=== PATIENT | male | born 1995 | race Caucasian/White ===

== ENCOUNTER 2016-12-21 13:05 | Emergency (ER) | payer OTHER ==
[2016-12-21 13:12] VITALS: BP 138/79; PULSE 76; TEMP 97.4; BMI 20.5
--- NOTE | 2016-12-21 14:42 | PDOC ---
History of Present Illness - General Chief Complaint: Injury Stated Complaint: INJURY Time Seen by Provider: 12/21/16 14:08 History Source: Patient Exam Limitations: No Limitations - History of Present Illness Initial Comments: 12/21/16 14:39 21 y/o male presents to the ED with laceration to his left fifth digit. Patient states was cutting an object with a miter cutter when it went through causing him to sustain a laceration. Patient denies any range of motion decreased, sensory changes distally, previous injury to affected area, and states is up-to -date on last tetanus being approximately 2 years ago. Timing/Duration: 1 hour Severity: mild Associated Symptoms: reports: denies symptoms Past History - Past Medical History Allergies/Adverse Reactions: Allergies Allergy/AdvReac Type Severity Reaction Status Date / Time No Known Allergies Allergy Verified 12/21/16 13:12 Home Medications: Ambulatory Orders NK [No Known Home Medication] 08/02/16 Other medical history: denies - Immunization History Immunization Up to Date: Yes - Psycho/Social/Smoking Cessation Hx Anxiety: No Suicidal Ideation: No Smoking Status: No Smoking History: Never smoked Number of Cigarettes Smoked Daily: 0 Hx Alcohol Use: No Drug/Substance Use Hx: No Substance Use Type: None Patient Lives Alone: No Lives with/in: parents Review of Systems - Review of Systems Able to Perform ROS?: Yes Constitutional: No: Symptoms Reported Integumentary: Yes: See HPI Neurological: No: Numbness, Tingling Hematologic/Lymphatic: No: Symptoms Reported *Physical Exam - Vital Signs Last Vital Signs Temp Pulse Resp BP Pulse Ox 97.4 F L 76 18 138/79 99 12/21/16 13:06 12/21/16 13:06 12/21/16 13:06 12/21/16 13:06 12/21/16 13:06 - Physical Exam General Appearance: Yes: Nourished, Appropriately Dressed. No: Apparent Distress Integumentary: positive: Other (patient with 2 cm linear laceration to lateral aspect of left fifth digit) Neurologic: positive: Motor Strength 5/5 (full range of motion of left fifth digit. ) Procedures - Laceration/Wound Repair Left 5th digit Finger Wound Length: to 2.5 cm Wound Explored: clean Wound's Depth, Shape: superficial, linear Irrigated w/ Saline: Yes Betadine Prep: Yes Anesthesia: 1% Lidocaine Amount of Anesthetic (ccs): 1 Wound Repaired With: Sutures Suture Size/Type: 5:0 Number of Sutures: 6 Medical Decision Making - Medical Decision Making 12/21/16 14:44 Patient with laceration to left fifth digit. Laceration repair done without difficulty. Patient on exam had no sensory changes with normal 2 point discrimination. *DC/Admit/Observation/Transfer Diagnosis at time of Disposition: Laceration of finger of left hand Qualifiers: Encounter type: initial encounter Qualified Code(s): S61.219A - Laceration without foreign body of unspecified finger without damage to nail, initial encounter - Discharge Dispostion Disposition: HOME Condition at time of disposition: Improved - Referrals Referrals: Rajinder Jones MD [Primary Care Provider] - - Patient Instructions Printed Discharge Instructions: DI for Laceration Repair -- Simple Additional Instructions: Please return to the ED in 10-14 days for removal. Keep area clean and dry
== END 2016-12-21 14:53 | disposition home or self-care (01) ==
LOC: JERFT 13:05
PROC: 0HQGXZZ Repair Left Hand Skin, External Approach (ICD-10-PCS; principal; 2016-12-21)
DX: S61.217A Laceration without foreign body of left little finger without damage to nail, initial encounter (principal); W27.8XXA Contact with other nonpowered hand tool, initial encounter; Y93.89 Activity, other specified; Y92.89 Other specified places as the place of occurrence of the external cause
CPT/HCPCS: 12001-25; 99282-25

== ENCOUNTER 2017-01-01 15:40 | Emergency (ER) | payer OTHER ==
[2017-01-01 15:59] VITALS: BP 114/71; PULSE 80; TEMP 98.5; BMI 21.1
--- NOTE | 2017-01-01 16:19 | PDOC ---
Suture Removal/Wound Check HPI - History of Present Illness Chief Complaint: Revisit,Wound Recheck Stated Complaint: WOUND CHECK, SUTURES IN PLACE LF 5TH FINGER Time Seen by Provider: 01/01/17 15:55 - Onset of Previous Treatment Comment:: 01/01/17 16:15 21-year-old male on 12/21/16, sustained a laceration to his left fifth digit at the level of the PIP joint laterally It was closed with 6 stitches, and he is here today for a wound check He states that the center 3 of the 6 stitches came out on their own Past History - Past Medical History Allergies/Adverse Reactions: Allergies No Known Allergies Allergy (Verified 01/01/17 15:49) Home Medications: Ambulatory Orders NK [No Known Home Medication] 08/02/16 - Immunization History Immunizations Up to Date: Yes Tetanus Status: Less than 5 years - Social History Smoking History: No Smoking Status: Never smoked Number of Ciarettes Per Day: 0 Suture Removal/Wound Check PE - Physical Exam Comments: 01/01/17 16:17 Physical exam The patient is alert and ambulatory and answering questions Head is normocephalic and atraumatic Left fifth finger There is a laceration laterally at the level of the PIP joint There appears to have been [address], but the center 3 have come out, and the wound is coming apart a bit in the middle where the sutures have come out There is no evidence of infection Patient is able to flex and extend all fingers and sensation is intact Medical Decision Making - Medical Decision Making 01/01/17 16:18 The area was cleansed thoroughly with Betadine, and the center part was closed with Steri-Strips The 3 stitches on either end of the wound were left in place Patient was instructed to keep the area clean and dry, and to return in 5 days for a wound check and suture removal *DC/Admit/Observation/Transfer Diagnosis at time of Disposition: Encounter for wound re-check - Discharge Dispostion Disposition: HOME Condition at time of disposition: Stable - Referrals Referrals: Rajinder Jones MD [Primary Care Provider] - - Patient Instructions Additional Instructions: Keep the Steri-Strips clean and dry and in place Please wear gloves if you need to get your hand wet so the Steri-Strips stay clean and dry Please return in 5 days for wound recheck, and Steri-Strip and suture removal Return immediately if you notice any drainage, increasing pain, redness, swelling, or any other concerns you may have
== END 2017-01-01 16:35 | disposition home or self-care (01) ==
LOC: FER 15:40
DX: Z48.01 Encounter for change or removal of surgical wound dressing (principal)
CPT/HCPCS: 99282-25

== ENCOUNTER 2017-03-02 13:22 | Emergency (ER) | payer OTHER ==
[2017-03-02 13:31] VITALS: BP 123/72; PULSE 102; TEMP 99.1; BMI 21.2
[2017-03-02] MEDS ORDERED: KETOROLAC TROMETHAMINE 30 MG/1 ML VIAL IVPUSH ONE (13:34)
[2017-03-02] MEDS ORDERED: KETOROLAC TROMETHAMINE 30 MG/1 ML VIAL ONE (13:38)
[2017-03-02] MEDS ORDERED: SODIUM CHLORIDE 1,000 ML IV ONE (13:41)
--- NOTE | 2017-03-02 13:41 | PDOC ---
History of Present Illness - General Chief Complaint: Pain Stated Complaint: LEFT BACK PAIN RADIATING TO FRONT AND GROIN Time Seen by Provider: 03/02/17 13:26 History Source: Patient Exam Limitations: No Limitations - History of Present Illness Travel History: No Initial Comments: 03/02/17 13:38 21y F presents with R flank pain and radiates to the RLQ. pt staets he started having the pain last night,a nd it does get worse intermittently making it more difficult for him to sleep. no associated f/c, n/v, hematuria, dysuria, diarrhea. 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 no prior hx of kidney stones, but family members have it has not taken any pain meds. pt does endorse it seems positional, and worsens when he stands. but it also worsened whenhe ws alying down in bed last night. Past History - Past Medical History Allergies/Adverse Reactions: Allergies Allergy/AdvReac Type Severity Reaction Status Date / Time No Known Allergies Allergy Verified 03/02/17 13:26 Home Medications: Ambulatory Orders NK [No Known Home Medication] 08/02/16 Other medical history: MIGRAINE HEADACHES - Immunization History Immunization Up to Date: Yes - Psycho/Social/Smoking Cessation Hx Anxiety: No Suicidal Ideation: No Smoking Status: No Smoking History: Never smoked Number of Cigarettes Smoked Daily: 0 Information on smoking cessation initiated: No Hx Alcohol Use: No Drug/Substance Use Hx: No Substance Use Type: None Review of Systems - Review of Systems Able to Perform ROS?: Yes Comments:: 03/02/17 13:39 Constitutional - no reported Fever, Chills, HEENT: no reported vision changes, sore throat Respiratory: no reported cough, sob, hemoptysis Cardiac: no reported chest pain, palpitations, light headedness, leg swelling Abd/GI: +R flank pain no reported abd pain, nausea, vomiting, blood per rectum, melena, diarrhea : no reported dysuria, frequency, discharge Musculskelatal - no reported back pain, joint swelling skin - no reported bruising, erythema, rash neurological: no reported headache, numbness, focal weakness, tingling, ataxia, hematologic: no reported anemia, easy bruising, easy bleeding *Physical Exam - Vital Signs Last Vital Signs Temp Pulse Resp BP Pulse Ox 99.1 F 102 H 20 123/72 99 03/02/17 13:22 03/02/17 13:22 03/02/17 13:22 03/02/17 13:22 03/02/17 13:22 - Physical Exam Comments: 03/02/17 13:40 GENERAL: The patient is awake, alert, and fully oriented, Nontoxic - in no acute distress. HEAD: Normocephalic, atraumatic. EYES: extraocular movements intact, sclera anicteric, conjunctiva clear. ENT: Normal voice, Moist mucous membranes. NECK: Normal range of motion, supple LUNGS: Breath sounds equal, clear to auscultation bilaterally. No wheezes, no rhonchi, no rales. HEART: Regular rate and rhythm, normal S1 and S2 without murmur, rub or gallop. ABDOMEN: Soft, nontender, normoactive bowel sounds. No guarding, no rebound. + mild R CVA tenderness EXTREMITIES: Normal range of motion, no edema. No clubbing or cyanosis. No cords, erythema, or tenderness. NEUROLOGICAL: No facial assymetry, Normal speech, PSYCH: Normal mood, normal affect. SKIN: Warm, Dry, normal turgor, ED Treatment Course - LABORATORY CBC & Chemistry Diagram: 03/02/17 13:40 03/02/17 13:34 Medical Decision Making - Medical Decision Making 03/02/17 13:40 21y M presenting with R flank pain that radiates to RLQ on exam mild R cva tenderness and mild rlq tenderness vitals noted for mild tachycaria o 102 suspect kdiney stone vs/ msk pain lower suspicion for appendicitis will ck labs, ua will give toradol will give fluids will reasess 03/02/17 15:45 labs reviewed trace bloodon UA ct neg for stones suspect possible msk cause will recommend supportive care at home return precautions wer discussed I discussed the physical exam findings, ancillary test results and final diagnoses with the patient. I answered all of the patient's questions. The patient was satisfied with the care received and felt comfortable with the discharge plan and treatment plan. The patient will call their primary care physician within 24 hours to arrange follow-up and will return to the Emergency Department with any new, persistent or worsening symptoms. *DC/Admit/Observation/Transfer Diagnosis at time of Disposition: Muscle strain - Discharge Dispostion Disposition: HOME Condition at time of disposition: Improved Admit: No - Referrals Referrals: Misael Glaser MD [Staff Physician] - - Patient Instructions Printed Discharge Instructions: DI for Abdominal Muscle Strain Additional Instructions: Return to the emergency department immediately with ANY new, persistent or worsening symptoms. Take ibuprofen or Tylenol as needed for pain. Try to avoid any heavy lifting or straining. You MUST call and follow up with your doctor tomorrow for further evaluation of your symptoms. Results were discussed with you. Please make sure your doctor reviews the results of your emergency evaluation. If you had any xrays during your visit, it was read preliminarily by myself, a Radiologist will review it and if there are any additional findings we will call you.
[2017-03-02 14:10] LABS: BASOPHIL 1.2 % (0-2.0); EOSINOPHIL 1.2 % (0-4.5); MCH 27.6 pg (25.7-33.7); MCHC 33.1 g/dl (32.0-35.9); MEAN CELL VOLUME 83.4 fl (80-96); MEAN PLT VOLUME 8.6 fl (7.5-11.1); NEUTROPHILS 69.2 % (42.8-82.8); PLATELET COUNT 276 K/MM3 (134-434); RDW 12.6 % (11.9-15.9); WHITE BLOOD COUNT 11.8 K/mm3 (4.0-10.8)
[2017-03-02 14:10] LABS: PH,URINE 5.5 (4.5-8); URINE APPEARANCE Clear; URINE BILIRUBIN 1+ (NEGATIVE); URINE BLOOD Trace-intact (NEGATIVE); URINE GLUCOSE (UA) Negative (NEGATIVE); URINE KETONE 2+ (NEGATIVE); URINE LEUK ESTERASE Negative (NEGATIVE); URINE NITRITE Negative (NEGATIVE); URINE UROBILINOGEN 0.2 E.U/dl (0.2-1.0)
[2017-03-02 14:17] LABS: ALBUMIN 4.4 g/dl (3.5-5.0); ALK PHOS 66 U/L (32-92); ANION GAP 8 (8-16); BILIRUBIN,TOTAL 0.9 mg/dl (0.2-1.0); CALCIUM 9.5 mg/dl (8.4-10.2); CO2 28 mmol/L (22-28); CREATININE 0.9 mg/dl (0.6-1.3); GLUCOSE,RANDOM 88 mg/dl (74-106); SGOT/AST 23 U/L (10-42); SGPT/ALT 25 U/L (10-40); TOT PROT 7.6 g/dl (6.4-8.3)
[2017-03-02 14:19] LABS: URINE COLOR YELLOW; URINE PROTEIN 1+ (NEGATIVE)
[2017-03-02 14:48] LABS: URINE RBC 0-3 /hpf (0-3); URINE WBC 0-1 (3-5)
== END 2017-03-02 15:55 | disposition home or self-care (01) ==
LOC: FER 13:22
PROC: 3E0333Z Introduction of Anti-inflammatory into Peripheral Vein, Percutaneous Approach (ICD-10-PCS; principal; 2017-03-02)
PROC: 3E0337Z Introduction of Electrolytic and Water Balance Substance into Peripheral Vein, Percutaneous Approach (ICD-10-PCS; 2017-03-02)
DX: S39.011A Strain of muscle, fascia and tendon of abdomen, initial encounter (principal); X58.XXXA Exposure to other specified factors, initial encounter; Y93.9 Activity, unspecified; Y92.9 Unspecified place or not applicable; Y99.9 Unspecified external cause status
CPT/HCPCS: 36415; 74176; 80053; 81003; 81015; 85025; 96361; 96374; 99284-25

== ENCOUNTER 2017-11-18 11:03 | Emergency (ER) | payer OTHER ==
[2017-11-18 11:08] VITALS: BP 119/77; PULSE 91; TEMP 97.6; BMI 22.0
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
== END 2017-11-18 14:37 | disposition home or self-care (01) ==
LOC: JERFT 11:03
PROC: 0RSUXZZ Reposition Right Metacarpophalangeal Joint, External Approach (ICD-10-PCS; principal; 2017-11-18)
DX: S62.346A Nondisplaced fracture of base of fifth metacarpal bone, right hand, initial encounter for closed fracture (principal); W22.01XA Walked into wall, initial encounter; Y93.89 Activity, other specified; Y92.9 Unspecified place or not applicable
CPT/HCPCS: 73110-TC-RT; 73130-TC-RT; 99282-25

== ENCOUNTER 2019-02-06 19:21 | Emergency (ER) | payer SELFPAY ==
[2019-02-06 19:34] VITALS: BP 118/57; PULSE 76; TEMP 98.4; BMI 22.0
--- NOTE | 2019-02-06 19:38 | CONSULT ---
Consult - text type - Consultation Consultation Note: CC: right testicular pain hpi: patient is a 23 year old male with history of right testicular pain since 1:00 pm today. Patient has had 2 previous episodes of acute right testicular pain that resolved. Patient denies trauma or urinary symptoms. Sonogram showed diminished blood blow as compared to the left testis. PE afeb, vss abd-soft nontender genitalia- nl phallus; both testes in symmetrical position; no edema or swelling of both testes; right epididymal tenderness; small right epididymal cyst; minimal right hydrocele; scrotal skin wn.; cremasteric reflex absent bilaterally imp intermittent right testicular torsion right epididymal cyst right hydrocele plan repeat scrotal sonogram if no acute torsion consider bilateral orchidopexy 60 minutes devoted to patient care discussed with radiologists and patient and ER staff at both [facility]
--- NOTE | 2019-02-06 19:44 | PDOC ---
History of Present Illness - General Chief Complaint: Pain Stated Complaint: TESICULAR TORSION Time Seen by Provider: 02/06/19 19:26 - History of Present Illness Initial Comments: 02/06/19 20:02 The patient was a 24 year old male with no significant reported PMH who was BIBEMS from [facility] for possible testicular torsion. Patient states pain started around 12 p.m. today immediately post coital. Pain is sharp, constant and sometimes radiates to his RLQ. States it feels as if someone is pulling a hair out of his scrotum. H/o similar pain 2-3 months previous was well as 1 year previous, on both occasions the pain was self-resolving after 2-3 minutes. The first episode of pain occured when he was walking to the bathroom to urinate, the second episode of pain occured while he was at work. 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 No noted dysuria/ hematuria since onset of pain with multiple urinations. Denies any recent fevers/chills, trauma, vomiting, diarrhea/constipation. NKDA As per EMR, labs @ [facility] earlier today showed no leukocytosis, clean urine. Past History - Past Medical History Allergies/Adverse Reactions: Allergies Allergy/AdvReac Type Severity Reaction Status Date / Time No Known Allergies Allergy Verified 02/06/19 19:30 Home Medications: Ambulatory Orders levoFLOXacin [Levaquin -] 500 mg PO DAILY #7 tablet 02/06/19 CVA: No COPD: No DVT: No Other medical history: Migraines - Immunization History Immunization Up to Date: Yes - Suicide/Smoking/Psychosocial Hx Smoking Status: No Smoking History: Never smoked Have you smoked in the past 12 months: No Number of Cigarettes Smoked Daily: 0 Information on smoking cessation initiated: No Hx Alcohol Use: No Drug/Substance Use Hx: No Substance Use Type: None Review of Systems - Review of Systems Constitutional: No: Chills, Fever HEENTM: No: Recent change in vision Respiratory: No: Cough, Shortness of Breath, Wheezing Cardiac (ROS): No: Chest Pain, Lightheadedness, Palpitations, Syncope ABD/GI: No: Constipated, Diarrhea, Nausea, Vomiting : Yes: Testicular Pain. No: Dysuria, Discharge, Hematuria *Physical Exam - Vital Signs Last Vital Signs Temp Pulse Resp BP Pulse Ox 98.4 F 76 18 118/57 L 98 02/06/19 19:31 02/06/19 19:31 02/06/19 19:31 02/06/19 19:31 02/06/19 19:31 - Physical Exam Comments: 02/06/19 20:08 Non-toxic appearing male VS unremarkable : (as per Dr. Lange): B/L absence of cremasteric reflex, palpable cords CV: S1,S2, no M/R/G Abdomen: soft, non-tender, (+) bowel sounds Respiratory: Lungs CLTA B/L, no wheeze/crackle ED Treatment Course - RADIOLOGY Radiology Studies Ordered: Category Date Time Status SCROTUM AND CONTENTS US [US] Stat Ultrasound 02/06/19 19:28 Ordered Medical Decision Making - Medical Decision Making 02/06/19 19:42 23 year old male, acute onset of post coital testicular pain. Scrotal U/S @ [facility] concerning for possible scrotal U/S Dr. Lange @ bedside - notes palpable cord, B/L absence of cremasteric reflex less likely suggestive of acute testicular torsion. Requests repeat scrotal U/S, possible elective orchiotemy in a.m. 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 B/L hydroceles; (2) B/L varicoceles; (3) R epidymal cyst - non aggressive/benign Will page Dr. Lange 02/06/19 20:45 Case d/w Dr. Lange, states patient can schedule elective orchiectomy; requests abx for epidiymitis. *DC/Admit/Observation/Transfer Diagnosis at time of Disposition: Testicular pain - Discharge Dispostion Disposition: HOME Condition at time of disposition: Good Decision to Admit order: No - Prescriptions Prescriptions: levoFLOXacin [Levaquin -] 500 mg PO DAILY #7 tablet - Referrals Referrals: Phi Lange MD [Staff Physician] - - Patient Instructions Additional Instructions: Please make a follow-up appointment in the next [address] Lange ( referral information provided) or you can call your insurance company for a list of urologists. You will likely require elective outpatient surgery. Your care is not complete until you are evaluated by a urologist. We are prescribing an antibiotic. Please complete the entire prescribed course. Return to the Emergency Department for any new/worsening/concerning symptoms include repeat pain. - Post Discharge Activity
--- NOTE | 2019-02-07 02:12 | PDOC ---
Documentation entered by Zaki Quintana SCRIBE, acting as scribe for Cesia Cardoso MD. Cesia Cardoso MD: This documentation has been prepared by the Lilian romano Nirvannie, SCRIBE, under my direction and personally reviewed by me in its entirety. I confirm that the documentation accurately reflects all work, treatment, procedures, and medical decision making performed by me. Attending Attestation - Resident Resident Name: Skye Soria - ED Attending Attestation I have performed the following: I have examined & evaluated the patient, The case was reviewed & discussed with the resident, I agree w/resident's findings & plan - HPI HPI: 02/06/19 19:59 this 23 yo male has intermittent rt testicular pain . Dr Jr Martinez is bedside and examined the pt. The pt was iniitally seen at [facility] and Dr Jr Martinez accepted pt here . Dr Jr Martinez requested repeat testicular US - Physicial Exam PE: 02/06/19 21:05 wnwd 23 yo male who is now comfortable after his exam with the urologist .He had rt testicular pain head ncat neck supple cvs [id number] lungs cta b/l abd flat,nontender,+bs exam already done by the urologist, Dr Jr Martinez. Currently there is no erythema or pain ext no edema neuro axox3,ambulatory skin warm and dry,no rashes no cva tenderness currently psych appropriate 02/06/19 21:06 - Medical Decision Making 02/06/19 20:35 EXAM: Bilateral scrotal sonogram. Clinical indication: Rule out testicular torsion. No further information is provided. There are no prior studies available for comparison. Findings: The right testicle measures 3.5 x 3.0 x 2.3 cm in diameter and has an unremarkable sonographic appearance without focal abnormality. Color Doppler duplex interrogation of the right testicle demonstrates normal internal flow. There is a tiny right-sided hydrocele. The right epididymis measures 1.0 x 0.9 x 0.5 cm in diameter and contains a small simple epididymal cyst. Also within the head there is a heterogeneous hypoechoic nodular area. This area measures roughly 0.9 x 0.4 cm in diameter and is ovoid and hypoechoic. Almost all epididymal lesions are nonaggressive. Using Valsalva technique there is evidence of right-sided varicocele. The left testicle measures 4.4 x 3.4 x 2.4 cm in diameter and hasn't unremarkable sonographic appearance without focal abnormality. Color Doppler duplex interrogation of the left testicle demonstrates normal internal flow. There is a tiny left-sided hydrocele. The left-sided epididymis measures 0.7 x 0.7 x 0.4 cm in diameter and has not unremarkable sonographic appearance. Using Valsalva technique there is evidence of left-sided varicocele. Nfam-rj-[id number] sonographic interrogation of the bilateral testicles demonstrates relatively symmetric blood flow. Impression: 1. Tiny bilateral hydroceles. 2. Bilateral varicoceles. 3. Tiny right epididymal cyst with a small right-sided epididymal soft tissue nodular area which is indeterminate from a sonographic standpoint. However, almost all epididymal lesions are nonaggressive/benign. Consider follow-up sonogram in 3-6 months time to confirm stability. Read by: Ezio Frost MD 02/06/19 21:09 imp intermittent testicular pain/Rt epididymal cyst, b/l varicoceles plan will follow up with urologist
== END 2019-02-06 21:57 | disposition home or self-care (01) ==
LOC: JER 19:21
DX: N43.2 Other hydrocele (principal); I86.1 Scrotal varices; N50.3 Cyst of epididymis
CPT/HCPCS: 76870-TC; 99281-25

== ENCOUNTER → 2019-02-06 | Emergency (ER) | payer SELFPAY ==
[~2019-02-06] MED LIST: morphine CARPU-JECT 4 MG/1 ML DISP.SYRIN IVPUSH ONE; morphine SULFATE 4 MG/ML VIAL ONE
--- NOTE | 2019-02-06 13:44 | PDOC ---
History of Present Illness - General Chief Complaint: Pain Stated Complaint: RIGHT TESTICULAR PAIN Time Seen by Provider: 02/06/19 13:37 History Source: Patient Exam Limitations: No Limitations - History of Present Illness Travel History: No Initial Comments: 02/06/19 13:43 23y M no significant pmhx presents with R tresticular pain. Pt states pain started around 12pm - had just had intercourse with his girlfriend and was laying in bed when he developed sudden onset of pain in the R testicle that rdiates up to the RLQ. Pt has urinated 3 x since but denies any urinary symptmos. Pt denies any dysuria, penile dc, hematuria, n/v, diaphoresis, fever/ chills, diarrhea, melena, bpr, abd pain. 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 social history: +Vaping Past History - Past Medical History Allergies/Adverse Reactions: Allergies Allergy/AdvReac Type Severity Reaction Status Date / Time No Known Allergies Allergy Verified 02/06/19 13:35 Home Medications: Ambulatory Orders NK [No Known Home Medication] 08/02/16 CVA: No COPD: No DVT: No - Immunization History Immunization Up to Date: Yes - Suicide/Smoking/Psychosocial Hx Smoking Status: No Smoking History: Never smoked Have you smoked in the past 12 months: No Number of Cigarettes Smoked Daily: 0 Hx Alcohol Use: No Drug/Substance Use Hx: No Substance Use Type: None Review of Systems - Review of Systems Able to Perform ROS?: Yes Comments:: 02/06/19 13:48 Constitutional - no reported Fever, Chills, HEENT: no reported vision changes, sore throat Respiratory: no reported cough, sob, hemoptysis Cardiac: no reported chest pain, palpitations, light headedness, leg swelling Abd/GI: no reported abd pain, nausea, vomiting, blood per rectum, melena, diarrhea : +testicular pain no reported dysuria, frequency, discharge Musculskelatal - no reported back pain, joint swelling skin - no reported bruising, erythema, rash neurological: no reported headache, numbness, focal weakness, tingling, ataxia, hematologic: no reported easy bruising, easy bleeding *Physical Exam - Physical Exam Comments: 02/06/19 13:48 GENERAL: The patient is awake, alert, and fully oriented, Nontoxic - in no acute distress. HEAD: Normocephalic, atraumatic. EYES: extraocular movements intact, sclera anicteric, conjunctiva clear. ENT: Normal voice, Moist mucous membranes. NECK: Normal range of motion, supple LUNGS: Breath sounds equal, clear to auscultation bilaterally. No wheezes, no rhonchi, no rales. HEART: Regular rate and rhythm, normal S1 and S2 without murmur, rub or gallop. ABDOMEN: Soft, nontender, No guarding, no rebound. No CVA tenderness : enlarged, diffusely tender R testical, no significant edema/induration/ erythema noted, absent cremestaric reflex EXTREMITIES: Normal range of motion, no edema. No clubbing or cyanosis. No cords, erythema, or tenderness. NEUROLOGICAL: No facial assymetry, Normal speech, moving all 4 extreities spontaneously and symmetrically PSYCH: Normal mood, normal affect. SKIN: Warm, Dry, normal turgor, ED Treatment Course - LABORATORY CBC & Chemistry Diagram: 02/06/19 13:56 02/06/19 13:56 Medical Decision Making - Medical Decision Making 02/06/19 13:50 concern for possible torsion, also consider uteritis, epidydmidis, kidney stone will obtain preop labs will obtain UA, GC US to eval for torsion 02/06/19 17:03 The patient's ultrasound reveals demnished blood flow to the right testicle. Case was discussed with Dr. Jr Maritnez - requests us transfer pt to [facility] so he can be evaluated for possibibly operative management. He is ocming now to [facility]. Case was also discussed with Dr. Cardoso- accepted to the ED for further evalution by Dr. Garduno 02/06/19 18:59 Empress here to roller picker the patient pt feels improved currently pain significantly relieved *DC/Admit/Observation/Transfer Diagnosis at time of Disposition: Testicular pain, right - Discharge Dispostion Condition at time of disposition: Stable - Referrals - Patient Instructions - Post Discharge Activity
[2019-02-06 13:56] VITALS: BMI 22.0
[2019-02-06 14:12] LABS: BASO % 0.3 % (0-2.0); EOS % 1.7 % (0-4.5); HEMOGLOBIN 15.1 GM/dl (11.7-16.9); LYMPH % 26.2 % (8-40); MCHC 33.5 g/dl (32.0-35.9); MEAN CELL VOLUME 83.5 fl (80-96); MEAN PLT VOLUME 8.6 fl (7.5-11.1); MONO % 9.5 % (3.8-10.2); NEUT % 62.3 % (42.8-82.8); PLATELET COUNT 284 K/MM3 (134-434); RBC 5.39 M/mm3 (4.00-5.60); RDW 12.6 % (11.9-15.9)
[2019-02-06 14:15] LABS: INR 1.35 (0.82-1.09)
[2019-02-06 14:21] LABS: ALBUMIN 4.2 g/dl (3.4-5.0); ALK PHOS 68 U/L (45-117); ANION GAP 10 MMOL/L (8-16); BILIRUBIN,TOTAL 0.6 mg/dl (0.2-1); BLOOD UREA NITROGEN 13 mg/dl (7-18); CALCIUM 9.6 mg/dl (8.5-10); CHLORIDE 102 mmol/L (98-107); CO2 26 mmol/L (21-32); CREATININE 0.8 mg/dl (0.55-1.3); GLUCOSE,RANDOM 102 mg/dl (74-106); POTASSIUM 4.3 mmol/L (3.5-5.1); SGOT/AST 21 U/L (15-37); SGPT/ALT 16 U/L (13-61); SODIUM 138 mmol/L (136-145); TOT PROT 7.3 g/dl (6.4-8.2)
[2019-02-06 16:12] VITALS: BP 115/70; PULSE 75; TEMP 98.1
== END | disposition home or self-care (01) ==
LOC: FER 13:33
PROC: 3E033NZ Introduction of Analgesics, Hypnotics, Sedatives into Peripheral Vein, Percutaneous Approach (ICD-10-PCS; principal; 2019-02-06)
DX: N50.811 Right testicular pain (principal)
CPT/HCPCS: 36415; 76870-TC; 80053; 81003; 85025; 85610; 86850; 86900; 86901; 87086; 87491; 87591; 99283-25

== ENCOUNTER 2019-05-19 20:30 | Emergency (ER) | payer OTHER ==
[2019-05-19 20:36] VITALS: BP 107/73; PULSE 84; TEMP 99; BMI 24.3
--- NOTE | 2019-05-19 20:40 | PDOC ---
History of Present Illness - General Chief Complaint: Laceration Stated Complaint: RT 2ND FINGER LACERATION Time Seen by Provider: 05/19/19 20:38 History Source: Patient Exam Limitations: No Limitations - History of Present Illness Initial Comments: 05/19/19 20:38 23 year old male with PMH bilateral hydrocele, right epididymal cyst presented to ED for laceration to finger. The patient reported that he accidentally cut his finger on the seat of his car today, and saw a piece of skin flapping off, prompting him to come to the ED. Pt denied decreased sensation to the finger, numbness, tingling, weakness. Last tetanus unknown per patient. Past History - Past Medical History Allergies/Adverse Reactions: Allergies Allergy/AdvReac Type Severity Reaction Status Date / Time No Known Allergies Allergy Verified 05/19/19 20:32 Home Medications: Ambulatory Orders NK [No Known Home Medication] 05/19/19 CVA: No COPD: No DVT: No Other medical history: MIGRAINE HEADACHES - Immunization History Immunization Up to Date: Yes - Suicide/Smoking/Psychosocial Hx Smoking Status: No Smoking History: Current some day smoker Have you smoked in the past 12 months: No Number of Cigarettes Smoked Daily: 0 Information on smoking cessation initiated: Yes Hx Alcohol Use: No Drug/Substance Use Hx: No Substance Use Type: None Review of Systems - Review of Systems Able to Perform ROS?: Yes Comments:: 05/19/19 20:38 General: denied fever, chills, generalized weakness. HEENT: denied sore throat, rhinorrhea, ear pain. Heart: denied chest pain, palpitations, syncope, diaphoresis. Respiratory: denied shortness of breath, cough, sputum production, hemoptysis. Abdomen: denied abdominal pain, nausea, vomiting, diarrhea, constipation, blood in stool. : denied dysuria, increased urinary frequency, hematuria, urinary incontinence , flank pain. Back: denied back pain. Musculoskeletal: admitted to finger pain. denied joint swelling. Neurological: denied headache, dizziness, numbness, tingling, weakness. Skin: admitted to laceration. denied rash, abrasion. *Physical Exam - Vital Signs Last Vital Signs Temp Pulse Resp BP Pulse Ox 99 F 84 18 107/73 97 05/19/19 20:30 05/19/19 20:30 05/19/19 20:30 05/19/19 20:30 05/19/19 20:30 - Physical Exam Comments: 05/19/19 20:38 Constitutional: Well-nourished, Well-developed, appearing stated age. HEENT: head is normocephalic, atraumatic. EOMI. PERRLA. Neck: supple. Full ROM. Heart: regular rhythm. no murmurs, rubs or gallops. Lungs: clear to auscultation bilaterally. no crackles, rhonchi or wheezing. no stridor. Abdomen: soft, nontender. normal bowel sounds. no rebound, guarding, masses. Extremities: peripheral pulses intact. full ROM and sensation to all fingers at the DIP/PIP/MCP. 2+ radial pulse bilaterally. capillary refill <2 seconds all fingers. full active flexion and extension strength to DIP/PIP/MCP of right second finger. Neurological: CN 2-12 grossly intact. moves all four extremities. Psych: awake, alert, oriented x3. follows commands. answers questions appropriately. Skin: <1x1 cm Flap/V-shaped laceration to the right second finger just proximal to the PIP on the extensor surface. Procedures - Laceration/Wound Repair Right Finger 2nd digit Wound Length: to 2.5 cm Wound Explored: clean, no foreign body present Wound's Depth, Shape: superficial, flap Irrigated w/ Saline: Yes Betadine Prep: No Anesthesia: 1% Lidocaine Amount of Anesthetic (ccs): 5 Wound Repaired With: Sutures Suture Size/Type: 6:0 Number of Sutures: 2 Sterile Dressing Applied: Yes Splint Applied: Yes Medical Decision Making - Medical Decision Making 05/19/19 20:39 23 year old male with above PMH presented to ED for laceration to finger from car seat. Last tetanus - unknown Physical examination showed finger is neurovascularly intact with V-shaped laceration just proximal to PIP of right second finger. Initial Vital Signs Temp Pulse Resp BP Pulse Ox 99 F 84 18 107/73 97 05/19/19 20:30 05/19/19 20:30 05/19/19 20:30 05/19/19 20:30 05/19/19 20:30 Afebrile. No tachycardia. No tachypnea. Mild hypotension, normal for age. No hypoxia on room air. Labs ordered: none Imaging ordered: none Medications ordered: ibuprofen 600 mg PO once, boostrix Wound was irrigated under pressure with normal saline. 05/19/19 21:30 Wound was repaired with two 6.0 sutures. See procedure note. The finger was neurovascularly intact post-procedure. The wound was covered with bacitracin, gauze and placed in a splint for comfort. Pt informed of wound check in 7 days and return precautions. Pt discharged. *DC/Admit/Observation/Transfer Diagnosis at time of Disposition: Laceration - Discharge Dispostion Disposition: HOME Condition at time of disposition: Improved Decision to Admit order: No - Referrals - Patient Instructions Printed Discharge Instructions: DI for Laceration Repair Additional Instructions: Keep the wound 100% clean and DRY for 24-48 hours. shower/bathe with a trash/ plastic bag over your hand. After that period change the dressing daily, covering the stitches with bacitracin and gauze. 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 I have provided you with a work note. Have the stitches examined in 7-10 days for possible removal. You can return to the Emergency Department or make an appointment with your primary care doctor. Take tylenol and/or ibuprofen over the counter for your pain. Take as advised on labels. You received a tetanus shot today. Observe the wound and return to the Emergency Department for increasing redness , pain, swelling discharge, fever, vomiting or any other new worsening or concerning symptoms. - Post Discharge Activity Forms/Work/School Notes: Back to Work
[2019-05-19] MEDS ORDERED: DIPHTH,PERTUSS(ACELL),TET 0.5 ML DISP.SYRIN IM ONE ×2 (20:48→20:53)
[2019-05-19] MEDS ORDERED: IBUPROFEN 600 MG TABLET (FP) PO ONE ×2 (20:49→20:52)
--- NOTE | 2019-05-19 21:15 | PDOC ---
Documentation entered by Ira Eller SCRIBE, acting as scribe for Lola Ambrosio MD. Lola Ambrosio MD: This documentation has been prepared by the Rafita romano Adrianna, SCRIBE, under my direction and personally reviewed by me in its entirety. I confirm that the documentation accurately reflects all work, treatment, procedures, and medical decision making performed by me. Attending Attestation - Resident Resident Name: NohemySoledad - ED Attending Attestation I have performed the following: I have examined & evaluated the patient, The case was reviewed & discussed with the resident, I agree w/resident's findings & plan, Exceptions are as noted - HPI HPI: The patient is a 23 year old male, with no significant PMH, who presents to the ED for evaluation of laceration received earlier today. 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 Patient presents with a laceration to the dorsal aspect of the PIP joint of the 2nd right finger. He notes the pain is localized, and describes it as a 3/10 in nature. He has been applying bacitracin and peroxide to the laceration. Patient is unsure of his last tetanus. Allergies: NKA, NKDA Surgical History: None reported Social History: Denies EtOH, tobacco, or illicit drug use. - Physicial Exam PE: GENERAL: Awake, alert, and fully oriented, in no acute distress EYES: PERRLA, EOMI, sclera anicteric, conjunctiva clear ENT: Oropharynx clear without exudates. Moist mucosa LUNGS: Breath sounds equal, clear to auscultation bilaterally. No wheezes, and no crackles HEART: Regular rate and rhythm, normal S1 and S2, no murmurs, rubs or gallops ABDOMEN: Soft, nontender, normoactive bowel sounds. No guarding, no rebound. No masses EXTREMITIES: Normal range of motion, no edema. No clubbing or cyanosis. No cords , erythema, or tenderness. R 2nd digit with FROM at PIP and DIP, normal strength flexion, extension at PIP and DIP, normal abduction/adduction of all digits. Normal sensation, 2+radial pulses NEUROLOGICAL: Normal speech, cranial nerves intact, equal strength and sensation b/l SKIN: R dorsal digit, just proximal to PIP with 0.5x.05cm stellate laceration, superficial on one side, a bit deeper on other side. No exposed tendon. No bleeding, surrounding erythema - Medical Decision Making 05/19/19 21:14 23yo M presents to the ED with R 2nd digit laceration, 0.5x0.5cm Wound washed out Will repair with single suture to deeper aspect Tdap updated 05/19/19 21:34 Wound repaired with since 5.0 suture, FROM at PIP and DIP after procedure Pt clinicially stable for DC, to return in 7-10 days for suture removal Instructed pt to return sooner if any redness, increasing, pain, discharge or new/concerning symptoms I discussed the physical exam findings, ancillary test results and final diagnoses with the patient. I answered all of the patient's questions. The patient was satisfied with the care received and felt comfortable with the discharge plan and treatment plan. The patient will call their primary care physician within 24 hours to arrange follow-up and will return to the Emergency Department with any new, persistent or worsening symptoms.
== END 2019-05-19 21:34 | disposition home or self-care (01) ==
LOC: FER 20:30
PROC: 0HQFXZZ Repair Right Hand Skin, External Approach (ICD-10-PCS; principal; 2019-05-19)
PROC: 3E0234Z Introduction of Serum, Toxoid and Vaccine into Muscle, Percutaneous Approach (ICD-10-PCS; 2019-05-19)
DX: S61.210A Laceration without foreign body of right index finger without damage to nail, initial encounter (principal); W26.8XXA Contact with other sharp object(s), not elsewhere classified, initial encounter; Y93.89 Activity, other specified; Y92.89 Other specified places as the place of occurrence of the external cause; Y99.0 Civilian activity done for income or pay; F17.210 Nicotine dependence, cigarettes, uncomplicated
CPT/HCPCS: 90715; 99282-25

== ENCOUNTER 2019-12-11 13:04 | Emergency (ER) | payer SELFPAY ==
--- NOTE | 2019-12-11 13:06 | PDOC ---
History of Present Illness - General Chief Complaint: Cold Symptoms Stated Complaint: FLU B Time Seen by Provider: 12/11/19 13:06 - History of Present Illness Initial Comments: HPI: 24yo M with no reported PMH presenting with fevers, chills, myalgias, congestion , and cough. Patient states he was visiting his sister on Thursday and she had a confirmed flu test. Since that time he has felt symptomatic. Has been taking theraflu which has improved his symptoms, most recent dose was about two hours ago. Patient has had a normal appetite. Fever of 101 yesterday. Unknown if he has a fever today. Decided to come to the ED today because his symptoms feel slightly worse and he needs a note for work. ROS: Constitutional: +fever, +chills HEENT: no throat pain, +congestion Cardiovascular: no chest pain, no palpitations Respiratory: +cough, no shortness of breath Gastrointestinal: no abdominal pain, no nausea Genitourinary: no dysuria, no hematuria Musculoskeletal: no myalgia, no arthralgia Skin: no rash, no itching Neurologic: no headache, no weakness Psych: no agitation, no anxiety PE: General: Awake, alert, and fully oriented, in no acute distress Head: No signs of trauma Eyes: EOMI, sclera anicteric ENT: Moist mucus membranes Neck: Normal ROM, supple Lungs: Lungs clear, Normal breath sounds Cardio: Regular rhythm, S1 and S2 present Abdomen: Soft, nontender. No guarding, no rebound, no masses Extremities: Normal range of motion, Distal pulses present SKIN: Warm, Dry, normal turgor Neurologic: Cranial nerves II through XII grossly intact. Normal speech ED Course/MDM: DDX including but not limited to viral syndrome, pneumonia, anemia, metabolic derangement Presentation consistent with viral syndrome As patient has been symptomatic for about a week, flu test and tamiflu not indicated at this time Instructed him to practice good handwashing Keeping well hydrated [id number] medications for fever/pain control Return precautions Stable for discharge Past History - Past Medical History Allergies/Adverse Reactions: Allergies Allergy/AdvReac Type Severity Reaction Status Date / Time No Known Allergies Allergy Verified 12/11/19 13:05 Home Medications: Ambulatory Orders D-Methorphan/PE/Acetaminophen [Theraflu Expressmax Cold-Cough] 245.5 ml PO PRN PRN 12/11/19 CVA: No COPD: No DVT: No - Immunization History Immunization Up to Date: Yes - Psycho Social/Smoking Cessation Hx Smoking Status: No Smoking History: Current some day smoker Have you smoked in the past 12 months: No Number of Cigarettes Smoked Daily: 0 Hx Alcohol Use: No Drug/Substance Use Hx: No Substance Use Type: None Discharge - Discharge Information Problems reviewed: Yes Clinical Impression/Diagnosis: Viral syndrome Condition: Stable Disposition: HOME - Follow up/Referral Referrals: [facility] [Provider Group] - Patient Discharge Instructions Patient Printed Discharge Instructions: DI for Viral Syndrome Additional Instructions: You came into the emergency department with fever, chills, muscle aches, congestion, and cough. Your history and physical exam was consistent with a viral syndrome. Rest, drink lots of fluids: Teas, water, soups, Pedialyte Saltwater gargles, Steamy showers can help break up mucus Lots of handwashing and good hygiene Continue [id number] medications for symptomatic relief Tylenol or Motrin for comfort Follow-up with a primary care provider this week to discuss this ED visit and to further evaluate your symptoms. Your workup is not complete until you do so. You have been referred to the [facility] in case you do not have a primary care doctor. Call and make an appointment at the number provided. Immediate medical attention is required if you have: any chest pain, palpitations, shortness of breath, severe headaches, changes in vision, episodes of fainting, focal numbness or weakness, any severe abdominal pain, any black tarry stool, or any new or concerning symptoms. If you think you are having an emergency, call for emergency medical services or present to the emergency department right away. - Post Discharge Activity Work/Back to School Note: Back to Work
[2019-12-11 13:15] VITALS: BP 119/74; PULSE 107; TEMP 99.3; BMI 22.0
--- NOTE | 2019-12-11 13:26 | PDOC ---
Attending Attestation - Resident Resident Name: Karin Amaya - ED Attending Attestation I have performed the following: I have examined & evaluated the patient, The case was reviewed & discussed with the resident, I agree w/resident's findings & plan, Exceptions are as noted - HPI HPI: 24 yo M no significant PMH presents with fever, chills, myalgias, nasal congestion, cough. He states his sister was recently diagnosed with the flu shortly after he visited her. Has been taking theraflu with some relief. Denies difficulty breathing. - Physicial Exam PE: GENERAL: Awake, alert, and fully oriented, in no acute distress HEAD: No signs of trauma EYES: PERRLA, EOMI, sclera anicteric, conjunctiva clear ENT: Auricles normal inspection, hearing grossly normal, nares patent, oropharynx clear without exudates. Moist mucosa NECK: Normal ROM, supple, no lymphadenopathy, JVD, or masses LUNGS: Breath sounds equal, clear to auscultation bilaterally. No wheezes, and no crackles HEART: Regular rate and rhythm, normal S1 and S2, no murmurs, rubs or gallops ABDOMEN: Soft, nontender, normoactive bowel sounds. No guarding, no rebound. No masses EXTREMITIES: Normal range of motion, no edema. No clubbing or cyanosis. No cords, erythema, or tenderness NEUROLOGICAL: Cranial nerves II through XII grossly intact. Normal speech, normal gait. Motor and sensation intact SKIN: Warm, dry, normal turgor, no rashes or lesions noted. 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 Counseled patient to avoid work, public spaces until his fever resolves, as this is likely flu based on recent exposure.
== END 2019-12-11 14:02 | disposition home or self-care (01) ==
LOC: FER 13:04
DX: B34.9 Viral infection, unspecified (principal); F17.210 Nicotine dependence, cigarettes, uncomplicated
CPT/HCPCS: 99282-25

== ENCOUNTER 2020-11-06 14:39 | Emergency (ER) | payer SELFPAY | END 2020-11-06 15:12 | disposition home or self-care (01) | LOC: JVIRT 14:39 | DX: Z20.822 Contact with and (suspected) exposure to COVID-19 (principal) | CPT/HCPCS: C9803; G2012-GT; U0003 ==

== ENCOUNTER 2021-06-25 13:54 | Emergency (ER) | payer SELFPAY ==
[2021-06-25 14:09] VITALS: BP 139/76; PULSE 99; TEMP 99.7; BMI 23.6
== END 2021-06-25 15:19 | disposition home or self-care (01) ==
LOC: FER 13:54
DX: M79.672 Pain in left foot (principal)
CPT/HCPCS: 73630-TC-RT-FY; 99283-25

== ENCOUNTER 2024-07-15 14:24 | Emergency (ER) | payer OTHER ==
[2024-07-15 14:33] VITALS: BP 114/74; PULSE 96; RESP 18; TEMP 98.6; BMI 23.2
[2024-07-15] MEDS ORDERED: KETOROLAC TROMETHAMINE 30 MG/1 ML VIAL ONE (14:55)
[2024-07-15] MEDS: KETOROLAC TROMETHAMINE 30 MG/1 ML VIAL IM ONE (15:00)
== END 2024-07-15 15:15 | disposition home or self-care (01) ==
LOC: FER 14:24
PROC: 3E0233Z Introduction of Anti-inflammatory into Muscle, Percutaneous Approach (ICD-10-PCS; principal; 2024-07-15)
DX: S13.4XXA Sprain of ligaments of cervical spine, initial encounter (principal); M54.6 Pain in thoracic spine; V49.40XA Driver injured in collision with unspecified motor vehicles in traffic accident, initial encounter; Y92.410 Unspecified street and highway as the place of occurrence of the external cause
CPT/HCPCS: 99284-25

== ENCOUNTER 2024-08-24 17:10 | Inpatient (IN) | payer OTHER ==
[2024-08-24 17:15] VITALS: BMI 22.8
[2024-08-24] MEDS ORDERED: METOCLOPRAMIDE HCL INJECTION 10 MG/2 ML VIAL ONE (17:40)
[2024-08-24] MEDS ORDERED: ACETAMINOPHEN INJECTION 100 ML ONE (17:40)
[2024-08-24] MEDS: ACETAMINOPHEN 1000 MG/100 ML BAG IVPB ONE (18:00)
[2024-08-24] MEDS: SODIUM CHLORIDE 0.9% 500 ML INFUS.BAG IV ONE (18:00)
[2024-08-24] MEDS: METOCLOPRAMIDE HCL INJECTION 10 MG/2 ML VIAL IVPUSH ONE (18:00)
[2024-08-24] MEDS ORDERED: VANCOMYCIN 500 MG VIAL (RESTRICTED TO ID ONLY) ONE (18:14)
[2024-08-24] MEDS ORDERED: VANCOMYCIN 1,000 MG VIAL (RESTRICTED TO ID ONLY) ONE (18:14)
[2024-08-24 18:27] LABS: HEMATOCRIT 46.1 % (35.4-49); HEMOGLOBIN 15.4 G/dL (11.7-16.9); MCH 27.9 pg (25.7-33.7); MCHC 33.4 g/dl (32.0-35.9); MEAN CELL VOLUME 83.4 fl (80-96); MEAN PLT VOLUME 9.1 fl (7.5-11.1); PLATELET COUNT 301.4 10^3/uL (134-434); RBC 5.53 10^6/uL (4.00-5.60); RDW 14.3 % (11.9-15.9)
[2024-08-24 18:38] LABS: ALBUMIN 4.8 g/dl (3.4-5.0); ALK PHOS 65 U/L (45-117); ANION GAP 9 mmol/L (4-13); BILIRUBIN,TOTAL 0.6 mg/dl (0.2-1); CALCIUM 10.2 mg/dl (8.5-10.1); CHLORIDE 101 mmol/L (98-107); CO2 29 mmol/L (21-32); GLUCOSE,RANDOM 125 mg/dl (74-106); MAGNESIUM 1.9 mg/dL (1.8-2.4); POTASSIUM 4.2 mmol/L (3.5-5.1); SGOT/AST 14 U/L (15-37); SGPT/ALT 12 U/L (7-52); SODIUM 139 mmol/L (136-145); TOT PROT 7.6 g/dl (6.4-8.2)
[2024-08-24] MEDS: CEFTRIAXONE 2,000 MG in DEXTROSE 5%-WATER - 50 ML IVPB ONE (18:42)
[2024-08-24 18:56] LABS: PLATELET ESTIMATE ADEQUATE
[2024-08-24] MEDS ORDERED: KETOROLAC TROMETHAMINE 30 MG/1 ML VIAL ONE (19:53)
[2024-08-24] MEDS: KETOROLAC TROMETHAMINE 30 MG/1 ML VIAL IVPUSH ONE (19:55)
[2024-08-24] MEDS: ACYCLOVIR INJECTION 700 MG in DEXTROSE 5%-WATER - 100 ML IVPB ONE (20:17)
[2024-08-24 20:27] LABS: CSF APPEARANCE CLEAR (CLEAR); CSF COLOR COLORLESS (COLORLESS); CSF WBC 1 mm3 (0-5)
[2024-08-24 20:45] LABS: HIV INTERPRETATION NEGATIVE (NEGATIVE)
[2024-08-24] MEDS: VANCOMYCIN HCL 1,500 MG in DEXTROSE 5%-WATER - 500 ML IVPB ONE (21:09)
[2024-08-24] MEDS: morphine CARPU-JECT 2 MG/1 ML DISP.SYRIN IVPUSH ONE (21:28)
[2024-08-25] MEDS ORDERED: METOCLOPRAMIDE HCL INJECTION 10 MG/2 ML VIAL IVPUSH PRN (06:20)
[2024-08-25] MEDS: LACTOBACILLUS ACIDOPHILUS 1 TABLET PO SCH (09:09)
[2024-08-25] MEDS: VANCOMYCIN/WATER FOR INJ (PEG) 1,000 MG/200 ML BAG IVPB SCH (09:09)
[2024-08-25] MEDS: CEFTRIAXONE 2 GM-D5W BAG 2 GM/50 ML BAG IVPB SCH (09:09)
[2024-08-25 09:43] LABS: BASO % 0.3 % (0-2.0); EOS % 0.7 % (0-4.5); HEMATOCRIT 37.3 % (35.4-49); HEMOGLOBIN 12.3 GM/dL (11.7-16.9); LYMPH % 21.6 % (8-40); MCH 27.2 pg (25.7-33.7); MEAN CELL VOLUME 82.6 fl (80-96); MEAN PLT VOLUME 8.7 fl (7.5-11.1); MONO % 8.9 % (3.8-10.2); NEUT % 68.5 % (42.8-82.8); PLATELET COUNT 235 10^3/uL (134-434); RBC 4.52 M/mm3 (4.00-5.60); RDW 14.2 % (11.9-15.9); WHITE BLOOD COUNT 8.6 K/mm3 (4.0-10.0)
[2024-08-25 09:56] LABS: CALCIUM 9.3 mg/dl (8.5-10.1); CREATININE 1.1 mg/dl (0.6-1.3); POTASSIUM 3.8 mmol/L (3.5-5.1)
[2024-08-25] MEDS: SODIUM CHLORIDE 1,000 ML IV SCH (12:08)
[2024-08-25] MEDS: ACYCLOVIR INJECTION 700 MG in DEXTROSE 5%-WATER - 100 ML IVPB SCH (12:25)
[2024-08-25 14:12] LABS: BF GLUCOSE (CSF ONLY) 68 mg/dL (40-70)
[2024-08-25] MEDS: VANCOMYCIN 1,000 MG in DEXTROSE 5%-WATER - 250 ML IVPB SCH (17:54)
[2024-08-26 06:17] VITALS: RESP 18
[2024-08-26 09:17] LABS: ALBUMIN 3.8 g/dl (3.4-5.0); BILIRUBIN,TOTAL 0.4 mg/dl (0.2-1); CALCIUM 9.1 mg/dl (8.5-10.1); POTASSIUM 4.2 mmol/L (3.5-5.1); TOT PROT 5.9 g/dl (6.4-8.2)
[2024-08-26] MEDS: ACETAMINOPHEN 325 MG TABLET (FP) PO PRN (09:57)
[2024-08-26 12:21] LABS: BASO % 0.2 % (0-2.0); EOS % 1.7 % (0-4.5); HEMATOCRIT 37.2 % (35.4-49); HEMOGLOBIN 12.6 GM/dL (11.7-16.9); LYMPH % 22.7 % (8-40); MCH 27.6 pg (25.7-33.7); MCHC 33.9 g/dl (32.0-35.9); MEAN CELL VOLUME 81.4 fl (80-96); MEAN PLT VOLUME 8.8 fl (7.5-11.1); NEUT % 66.4 % (42.8-82.8); PLATELET COUNT 219 10^3/uL (134-434); RBC 4.57 M/mm3 (4.00-5.60); RDW 14.2 % (11.9-15.9); WHITE BLOOD COUNT 6.6 K/mm3 (4.0-10.0)
[2024-08-27 09:11] VITALS: BP 123/60; PULSE 63; TEMP 98.2
== END 2024-08-27 12:00 | disposition home or self-care (01) | DRG 54 ==
LOC: FER 17:10 → FM/S 21:09 → OBSVTOIN 08-26 11:54
PROVIDERS: ADMIT Internal Medicine
DX: G43.909 Migraine, unspecified, not intractable, without status migrainosus (principal); R50.9 Fever, unspecified; R53.83 Other fatigue
CPT/HCPCS: 0241U-QW; 36415; 70450-TC; 71045-TC-FY; 80048; 80053; 81003; 82945; 83036; 83735; 84157; 84166; 84439; 84443; 85025; 85027; 85651; 86140; 86592; 86617; 86788; 86789; 86803; 87040; 87070; 87086; 87205; 87252; 87389; 87476; 87529; 87799; 87899; 99285-25; G0378; J0131